=== PATIENT | male | born 2000 | race Asian ===

== ENCOUNTER 2021-07-24 20:38 | Emergency (ER) | payer MEDICAID ==
[~2021-07-24] VITALS: Ht 170.2 cm; Wt 72.6 kg
[2021-07-24 20:50] VITALS: BP 122/82
--- NOTE | 2021-07-24 20:53 | NUR ---
TO LOBBY A/W BED AMBULATORY
[2021-07-24] MEDS ORDERED: ROB PO (22:40)
[2021-07-24] MEDS ORDERED: ALBU0.0912 INH (22:40)
[2021-07-24 22:55] VITALS: BP 122/82
--- NOTE | 2021-07-24 22:56 | NUR ---
Patient discharged with v/s stable. Written and verbal after care instructions given and explained. Patient verbalized understanding. Ambulatory with steady gait. All questions addressed prior to discharge. Advised to follow up with PMD.
== END 2021-07-24 22:52 | disposition home or self-care (01) ==
LOC: MED 20:38
DX: R05.9 Cough, unspecified (principal); Z79.899 Other long term (current) drug therapy
CPT/HCPCS: 71045; 99283